=== PATIENT | male | born 1980 | race Caucasian/White ===

== ENCOUNTER 2024-02-20 18:36 | Emergency (ER) | payer BC, SELFPAY ==
[2024-02-20 18:45] VITALS: BP 158/93
--- NOTE | 2024-02-20 20:14 | ED.GENMED ---
History of Present Illness
General
Chief Complaint: Anal/Rectal Problem
Source: patient
Exam Limitations: none
Time Seen by Provider: 02/20/24 20:02
Nursing documentation reviewed up to this point in time: agreed with
History of Present Illness
History of Present Illness:
43-year-old male presents emergency department complaining of a protruding hemorrhoid. It is somewhat painful. He has seen Dr. Reis in the past.
Past History
Past History
ED Past Medical History: None
ED Past Surgical History: Other (hernia repair, deviated septum repair, hemorrhoid banding)
Social History
Tobacco: Non-smoker
Alcohol: None
Drug: None
Personal:
Living: with family
Employment: Employed
Family History
Family History: Other (not applicable)
Review of Systems
Review of Systems
Allergies reviewed?: Yes
All Other Systems: Not applicable
Constitutional: Reports no symptoms
EENT: Reports no symptoms
Respiratory: Reports no symptoms
Cardiac: Reports no symptoms
ABD/GI: Reports pain (Rectal pain)
: Reports no symptoms
Musculoskeletal: Reports no symptoms
Skin: Reports no symptoms
Neurological: Reports no symptoms
Endocrine: Reports no symptoms
Hematologic/Lymphatic: Reports no symptoms
Psychiatric: Reports no symptoms
Phy Exam
Physical Exam
Physical Exam:
Physical Exam
General: no apparent distress, not acutely ill
Neck: supple.
Lungs: no acute respiratory distress.
Abdomen: normal bowel sounds. not tender. no CVAT, rectal exam shows protruding hemorrhoid left-sided, no thrombosis noted
Neuro: alert and oriented. no focal neurological deficits
Skin: no rash
Psychiatric: well kept. interactive and cooperative
Extremities: no edema. no calf tenderness. negative homans. good distal pulses
Course
Orders/Labs/Results
Orders:
Orders
02/20/24 20:15
Nitroglycerin Ointment [Nitro-Bid] 0.5 inch TOPICAL STAT STA
Vital Signs
Initial and Last Documented VS:
Initial Vital Signs
Temp Pulse Resp BP Pulse Ox
98.2 F 77 18 158/93 99
02/20/24 18:45 02/20/24 18:45 02/20/24 18:45 02/20/24 18:45 02/20/24 18:45
Last Documented Vital Signs
Temp Pulse Resp BP Pulse Ox
98.2 F 77 18 158/93 99
02/20/24 18:45 02/20/24 18:45 02/20/24 18:45 02/20/24 18:45 02/20/24 18:45
MDM/Problems Addressed
Differential Diagnosis Includes:
Thrombosed hemorrhoid, rectal bleed
MDM/Problems Addressed:
43-year-old male with hemorrhoid, no thrombosis seen. Treat with nitroglycerin. Preparation H. Follow-up with Dr. Reis.
*Critical Care Note
Total Time (30-74mins, 75-104mins- exclusive of procedures): Not Applicable
Patient Management
Social determinants of health affecting care: Living situation
Escalation/DeEscalation of care consider admission/obs:
Admit not indicated
ED Attending Note
-
Portions of this chart may have been created with voice recognition software.� Occasional wrong word or��sound alike� substitutions may have occurred due to the inherent limitations of voice recognition software.
Discharge Plan
Departure
Patient Disposition: Home (Routine Discharge)
Date of Disposition: 02/20/24
Time of Disposition: 20:17
Patient with high blood pressure during this ER visit?: Yes
Condition: Good
Discharge Problem:
Hemorrhoid
Instructions: Hemorrhoids (DC)
Prescriptions:
New
nitroglycerin 2 % ointment
1 inch transdermal BID Qty: 30 0RF
Rx Instructions:
Applied to rectum twice a day
Referrals:
Jorden Reis MD [Active] - Call in 1-3 days for appt
Interventions
Interventions:
*Risk Screen - Suicide Last Done: 02/20/24 18:45
*General Assessment Last Done: 02/20/24 18:45
*Neglect/Abuse Screening Last Done: 02/20/24 18:45
ED- Fall Risk Assessment Last Done: 02/20/24 20:20
*ED COVID-19 Vaccine History Last Done: 02/20/24 20:20
ED-Skin Assessment Last Done: 02/20/24 20:20
Discharge Date and Time
Print Language: TURKISH
[2024-02-20] MEDS: NITRO-BID 0.5 INCH TOPICAL (20:24)
[2024-02-20 20:28] VITALS: BP 132/81
== END 2024-02-20 20:45 | disposition home or self-care (01) ==
LOC: EMR 18:36
PROVIDERS: EMERGENCY PHYSICIAN Emergency Medicine; FAMILY PHYSICIAN Internal Medicine
DX: K64.9 Unspecified hemorrhoids (principal); Z87.19 Personal history of other diseases of the digestive system
CPT/HCPCS: 99284